=== PATIENT | female | born 1945 | race Asian ===

== ENCOUNTER 2023-06-06 17:58 | Emergency (ER) | payer OTHER, MEDICAID ==
[~2023-06-06] VITALS: Ht 142.2 cm; Wt 57.6 kg
[2023-06-06 18:07] VITALS: BP 131/78; PULSE 86; RESP 16; TEMP 98; O2SAT 97
[2023-06-06 19:01] LABS: BASOPHILS # (AUTO) 0.1 K/uL (0.00-0.22); EOSINOPHILS # (AUTO) 0.2 K/uL (0-0.4); EOSINOPHILS % (AUTO) 2.3 % (0.0-4.0); HEMATOCRIT 29.6 % (36-48); HEMOGLOBIN 9.9 g/dL (12.0-16.0); LYMPHOCYTES # (AUTO) 2.4 K/uL (2.5-16.5); MEAN CORPUSCULAR HEMOGLOBIN 27 pg (27-31); MEAN CORPUSCULAR HGB CONC 33 g/dL (33-37); MONOCYTES # (AUTO) 0.9 K/uL (0.8-1.0); MONOCYTES % (AUTO) 11.4 % (1.7-9.3); NEUTROPHILS # (AUTO) 4.5 K/uL (1.8-7.7); NEUTROPHILS % (AUTO) 55.3 % (42.2-75.2); PLATELET COUNT (AUTO) 305 K/uL (140-450); RED CELL DISTRIBUTION WIDTH 15.7 % (11.6-13.7); WHITE BLOOD COUNT (AUTO) 8.1 K/uL (4.8-10.8)
[2023-06-06 19:10] LABS: APPEARANCE,URINE HAZY (CLEAR); BILIRUBIN,URINE NEGATIVE (NEGATIVE); BLOOD, URINE TRACE (NEGATIVE); COLOR,URINE YELLOW (YELLOW); LEUKOCYTE ESTERASE ,URINE NEGATIVE (NEGATIVE); NITRITE, URINE NEGATIVE (NEGATIVE); PROTEIN,URINE NEGATIVE (NEGATIVE); UGLUCOSE NEGATIVE (NEGATIVE); UROBILINOGEN,URINE 0.2 EU/dL (0.2 - 1)
[2023-06-06 19:16] LABS: ALANINE AMINOTRANSFERASE 44 U/L (12-78); ALBUMIN 3.5 g/dL (3.4-5.0); ALKALINE PHOSPHATASE 48 U/L (50-136); ANION GAP 12.3 (8-16); ASPARTATE AMINOTRANSFERASE 18 U/L (15-37); CALCIUM 8.6 mg/dL (8.5-10.1); CARBON DIOXIDE 25.8 mmol/L (21-32); CHLORIDE 105 mmol/L (98-107); CREATININE 2.2 mg/dL (0.6-1.3); GLUCOSE 125 mg/dL (74-106); LIPASE 27 U/L (16-77); POTASSIUM 5.1 mmol/L (3.5-5.1); SODIUM SERUM 138 mmol/L (136-145); TOTAL BILIRUBIN 0.5 mg/dL (0.0-1.0); TOTAL PROTEIN, SERUM 7.6 g/dL (6.4-8.2); UREA NITROGEN, BLOOD 23 mg/dL (7-18)
[2023-06-06 19:51] LABS: BACTERIA,URINE 2+ /HPF (None Seen); RBC,URINE 0-5 /HPF (0-5); SQUAMOUS EPITHELIAL CELL,UR 0-3 (FEW) /LPF (0-3 (FEW)); WBC,URINE 80-100 /HPF (0-5); YEAST,URINE Moderate /HPF (None Seen)
[2023-06-06] MEDS ORDERED: FLUCONAZOLE 100 MG TAB PO STA (20:52)
[2023-06-06] MEDS ORDERED: ACETAMINOPHEN EXTRA STRENGTH 500 MG TAB PO ONE (20:55)
[2023-06-06] MEDS ORDERED: NITR100C1 PO (21:05)
[2023-06-06 21:24] VITALS: BP 142/64; PULSE 80; RESP 19; TEMP 98; O2SAT 98
== END 2023-06-06 21:24 | disposition home or self-care (01) ==
LOC: MED 17:58
DX: N39.0 Urinary tract infection, site not specified (principal); B37.31 Acute candidiasis of vulva and vagina; E11.22 Type 2 diabetes mellitus with diabetic chronic kidney disease; I12.9 Hypertensive chronic kidney disease with stage 1 through stage 4 chronic kidney disease, or unspecified chronic kidney disease; N18.9 Chronic kidney disease, unspecified; Z86.73 Personal history of transient ischemic attack (TIA), and cerebral infarction without residual deficits; Z90.49 Acquired absence of other specified parts of digestive tract; Z79.2 Long term (current) use of antibiotics; Z88.0 Allergy status to penicillin
CPT/HCPCS: 36415; 80053; 81001; 83690; 85025; 87086; 99284